=== PATIENT | male | born 1990 | race American Indian/Alaskan Native ===

== ENCOUNTER 2018-11-07 10:10 | Emergency (ER) | payer SELFPAY ==
[2018-11-07] MEDS ORDERED: CLEOCIN 900 MG/50 mL 900 MG/50 ML BAG IV ONE (10:39)
[2018-11-07 11:05] LABS: Basophils % (Auto) 0.4 % (0.0-1.8); Eosinophils % (Auto) 0.5 % (0.0-4.3); Hematocrit 42.3 % (35.5-45.6); Hemoglobin 13.7 gm/dl (11.8-15.2); Lymphocytes # (Auto) 1.2 K/mm3 (1.2-5.4); Mean Corpuscular HGB Conc 32 % (32-34); Mean Corpuscular Volume 84 fl (84-94); Monocytes # (Auto) 0.7 K/mm3 (0.0-0.8); Monocytes % (Auto) 6.8 % (0.0-7.3); Platelet Count 214 K/mm3 (140-440); Red Blood Count 5.02 M/mm3 (3.65-5.03); Red Cell Distribution Width 15.4 % (13.2-15.2)
[2018-11-07 11:11] LABS: BUN/Creatinine Ratio 7; Blood Urea Nitrogen 5 mg/dL (9-20); Calcium 8.9 mg/dL (8.4-10.2); Hemolysis Index 8
--- NOTE | 2018-11-07 11:19 | Emergency Department Report ---
HPI - General Chief Complaint: Sore Throat Time Seen by Provider: 11/07/18 10:27 - HPI HPI: 28-year-old male presents to the emergency department with a complaint of a 2 to three-day history of a sore throat, and now a one-day history of some swelling and redness to the left side of the face includes the jaw and just below the jaw. He has pain with swallowing and says that he has some difficulty opening his mouth completely. He has not taken anything for her symptoms prior to presentation. He says that he has a history of some "scalp cellulitis." No recent travel or sick contacts at home. ED Past Medical Hx - Past Medical History Previous Medical History?: No - Surgical History Past Surgical History?: No - Social History Smoking Status: Current Every Day Smoker Substance Use Type: None - Medications Home Medications: Home Medications Medication Instructions Recorded Confirmed Last Taken Type Clindamycin [Clindamycin CAP] 300 mg PO Q6H #28 capsule 11/07/18 Unknown Rx HYDROcodone/APAP 5-325 [[place] 1 each PO Q6HR PRN #12 tablet 11/07/18 Unknown Rx 5/325] ED Review of Systems ROS: Stated complaint: FACE SWOLLEN Other details as noted in HPI Comment: All other systems reviewed and negative Constitutional: denies: chills, fever Eyes: denies: eye pain, vision change ENT: throat pain. denies: congestion Respiratory: denies: cough, shortness of breath Cardiovascular: denies: chest pain, palpitations Gastrointestinal: denies: abdominal pain, vomiting Skin: rash, change in color Neurological: denies: headache, weakness Hematological/Lymphatic: denies: easy bleeding, easy bruising Physical Exam - Physical Exam Vital Signs: Vital Signs 11/07/18 10:16 Temperature 98.0 F Pulse Rate 63 Respiratory 18 Rate Blood Pressure 121/72 O2 Sat by Pulse 97 Oximetry Physical Exam: GENERAL: The patient is well-developed well-nourished. HENT: Normocephalic. Atraumatic. Patient has moist mucous membranes. There is mild bilateral tonsillar hypertrophy with erythema. No drooling. EYES: Extraocular motions are intact. NECK: Supple. Trachea is midline. CHEST/LUNGS: Clear to auscultation. There is no respiratory distress noted. HEART/CARDIOVASCULAR: Regular. There is no tachycardia. There is no murmur. ABDOMEN: Abdomen is soft, nontender. Patient has normal bowel sounds. There is no abdominal distention. SKIN: There is some facial swelling to the left mandibular and submandibular region with some erythema. No bleeding, weeping or drainage. No fluctuance. NEURO: The patient is awake, alert, and oriented. The patient is cooperative. The patient has no focal neurologic deficits. The patient has normal speech. MUSCULOSKELETAL: There is no tenderness or deformity. There is no evidence of acute injury. ED Course Vital Signs 11/07/18 10:16 Temperature 98.0 F Pulse Rate 63 Respiratory 18 Rate Blood Pressure 121/72 O2 Sat by Pulse 97 Oximetry - Consultations Consultation #1: I spoke with the oral maxillofacial surgery attending conductor/engineer at [facility], Dr. Arredondo, who listened to the case presentation and most specifically sent to the CT findings of the focal defect of the left mandibular lingula. Since there does not appear to be anything to drain currently, he is in agreement with the plan for outpatient follow-up in their clinic and antibiotic treatment. 11/07/18 16:38 ED Medical Decision Making - Lab Data Result diagrams: 11/07/18 10:41 11/07/18 10:41 - Radiology Data Radiology results: report reviewed CT facial bones without contrast CLINICAL HISTORY: Left-sided facial pain and swelling FINDINGS: There is lucency surrounding the roots of multiple mandibular teeth at. However, the findings most notably involving the posterior left molar on the left with associated defect invo lving the lingual cortex at. Furthermore, there are edematous changes within the adjacent lingual soft tissues with a area of relative decreased attenuation measuring 1.37 m in greatest AP dimension. This finding would be compatible with developing abscess. There are notable surrounding inflammatory changes extending into the left submandibular space with adjacent reactive at adenopathy. Furthermore, there is thickening of the left platysma muscle with inflammatory changes of the superficial buccal soft tissues edema also results in mild mass effect upon the left parapharyngeal soft tissues at. There is notable adenoidal and palatine soft tissues most consistent with lymphoid hypertrophy. The paranasal sinuses are pneumatized without air-fluid levels. The nasal septum is midline. No significant inflammatory changes are seen involving the orbits. All CT scans at this location are performed using the CT dose reduction for [place] by means of automated exposure control. IMPRESSION: There is lucency surrounding the root of the posterior left mandibular molar with focal defect involving the lingual cortex. Additionally, the findings are compatible with developing periodontal abscess involving the adjacent lingual soft tissues measure approximately 1.3 cm in greatest dimension. There are associated surrounding inflammatory changes with edema and reactive adenopathy. - Medical Decision Making This patient presents with a few days of a sore throat and some left-sided facial swelling. There is some swelling over the left mandibular region and sub mandibular region with some erythema concerning for cellulitis. There is no fluctuance. There is no drooling. The patient has some tonsillar hypertrophy and erythema. He was positive for rapid strep test. Patient's labs were unremarkable including CBC and metabolic panel. The patient had a CT scan of the face with IV contrast that came back showing lucencies to multiple left mandibular teeth but most notably to the posterior molar. There is a focal defect to the lingula of the left mandible. Overall this shows some signs of developing periodontal abscesses. And there is also some reactive lymphadenopathy. The patient received a dose of IV clindamycin here. As per the consultation section, I spoke with the oral maxillofacial on-call physician at [facility] who agrees that the patient can follow up outpatient at their clinic. Patient has no leukocytosis, his vital signs are stable including being afebrile, he is able to swallow liquids, take medications and there is no dr ooling. Follow up these reasons, we will attempt to treat the patient in the outpatient setting. He has been given a prescription for antibiotics and pain medication. He has been given a referral for the OMFS clinic at [facility] and told to call upon discharge for the earliest appointment. We also had a long discussion about the reasons for return to the closest emergency department such as increased facial swelling, inability to swallow liquids, difficulty with his secretions, or with any worsening of his symptoms or any acute distress. We discussed all the labs and imaging. The patient understands and agrees to the plan. - Differential Diagnosis facial cellulitis, strep pharyngitis, peritonsillar abscess, sepsis Critical Care Time: No Critical care attestation.: If time is entered above; I have spent that time in minutes in the direct care of this critically ill patient, excluding procedure time. ED Disposition Clinical Impression: Strep pharyngitis, Facial cellulitis, Dental abscess Disposition: TO HOME OR SELFCARE Is pt being admited?: No Condition: Stable Instructions: Dental Abscess (ED), Cellulitis (ED), Strep Throat (ED) Additional Instructions: Take the antibiotics as Prescribed. Please follow up with the oromaxillofacial clinic at [facility] regarding the abnormal finidings from your CT of the facial bones and the infection of your mandible (jaw). You will also need to see a dentist regarding her dental abscesses. Return to the emergency Department with any worsening of your symptoms including inability to swallow liquids, swallow your own secretions, increased pain, increased swelling, or with any acute distress. Prescriptions: Clindamycin [Clindamycin CAP] 300 mg PO Q6H #28 capsule HYDROcodone/APAP 5-325 [[place] 5/325] 1 each PO Q6HR PRN #12 tablet PRN Reason: Pain Referrals: [facility] [Outside] - [facility] [Outside] - 2-3 Days Time of Disposition: 16:46
--- NOTE | 2018-11-07 13:35 | Cat Scan Report ---
CT facial bones without contrast CLINICAL HISTORY: Left-sided facial pain and swelling FINDINGS: There is lucency surrounding the roots of multiple mandibular teeth at. However, the findin gs most notably involving the posterior left molar on the left with associated defect involving the l ingual cortex at. Furthermore, there are edematous changes within the adjacent lingual soft tissues w ith a area of relative decreased attenuation measuring 1.37 m in greatest AP dimension. This finding would be compatible with developing abscess. There are notable surrounding inflammatory changes exten ding into the left submandibular space with adjacent reactive at adenopathy. Furthermore, there is th ickening of the left platysma muscle with inflammatory changes of the superficial buccal soft tissues edema also results in mild mass effect upon the left parapharyngeal soft tissues at. There is notabl e adenoidal and palatine soft tissues most consistent with lymphoid hypertrophy. The paranasal sinuses are pneumatized without air-fluid levels. The nasal septum is midline. No signi ficant inflammatory changes are seen involving the orbits. All CT scans at this location are performe d using the CT dose reduction for ALARA by means of automated exposure control. IMPRESSION: There is lucency surrounding the root of the posterior left mandibular molar with focal defect involv ing the lingual cortex. Additionally, the findings are compatible with developing periodontal abscess involving the adjacent lingual soft tissues measure approximately 1.3 cm in greatest dimension. Ther e are associated surrounding inflammatory changes with edema and reactive adenopathy. Signer Name: Benito Wood MD Signed: 11/07/2018 1:30 PM Workstation Name: [id number]
[2018-11-07 14:51] VITALS: BP 125/85
== END 2018-11-07 14:50 | disposition home or self-care (01) ==
LOC: ED 10:10
DX: J02.0 Streptococcal pharyngitis (principal); K04.7 Periapical abscess without sinus; L03.211 Cellulitis of face; F17.200 Nicotine dependence, unspecified, uncomplicated
CPT/HCPCS: 36415; 70487; 80048; 85025; 87430; 96365; 99284; Q9967

== ENCOUNTER 2018-11-10 13:23 | Emergency (ER) | payer SELFPAY ==
--- NOTE | 2018-11-10 13:58 | Emergency Department Report ---
Blank Doc - Documentation Documentation: This is a 28-year-old male that presents with left sided facial swelling and s ore throat and dental pain. Has been taking antibiotics which was not helping and getting worse. CT shows positive strep and dental ascbess. This initial assessment/diagnostic orders/clinical plan/treatment(s) is/are subject to change based on patient's health status, clinical progression and re- assessment by fellow clinical providers in the ED. Further treatment and workup at subsequent clinical providers discretion. Patient/guardians urged not to elope from the ED as their condition may be serious if not clinically assessed and managed. Initial orders include: 1- Patient sent to MAIN ED for further evaluation and treatment 2- labs
[2018-11-10 14:48] LABS: Basophils % (Auto) 0.3 % (0.0-1.8); Eosinophils # (Auto) 0.1 K/mm3 (0.0-0.4); Eosinophils % (Auto) 0.5 % (0.0-4.3); Hematocrit 42.9 % (35.5-45.6); Hemoglobin 13.8 gm/dl (11.8-15.2); Lymphocytes # (Auto) 1.4 K/mm3 (1.2-5.4); Lymphocytes % (Auto) 10.1 % (13.4-35.0); Mean Corpuscular HGB Conc 32 % (32-34); Mean Corpuscular Volume 83 fl (84-94); Monocytes # (Auto) 1.2 K/mm3 (0.0-0.8); Monocytes % (Auto) 9.1 % (0.0-7.3); Platelet Count 273 K/mm3 (140-440); Red Blood Count 5.16 M/mm3 (3.65-5.03); Red Cell Distribution Width 15.2 % (13.2-15.2)
[2018-11-10 15:08] LABS: BUN/Creatinine Ratio 6; Blood Urea Nitrogen 4 mg/dL (9-20); Calcium 9.6 mg/dL (8.4-10.2); Hemolysis Index 0
[2018-11-10] MEDS ORDERED: ZOSYN/NS 4.5GM/100ML 4.5 GM/100 ML VIAL IV ONE (17:41)
[2018-11-10] MEDS ORDERED: CLEOCIN 900 MG/50 mL 900 MG/50 ML BAG IV ONE (17:41)
--- NOTE | 2018-11-10 17:43 | Emergency Department Report ---
ED ENT HPI - General Chief complaint: Sore Throat Stated complaint: SWOLLEN FACE Time Seen by Provider: 11/10/18 13:57 Source: patient Mode of arrival: Ambulatory Limitations: No Limitations - History of Present Illness MD complaint: sore throat, difficulty swallowing -: Gradual Location: other (Pharynx) Severity: severe Severity scale (0 -10): 9 Quality: dull Consistency: constant Improves with: none Worsens with: swallowing, eating Context- Dental: poor dental care Associated Symptoms: pain with swallowing, sore throat, other (Trismus) - Related Data Previous Rx's Medication Instructions Recorded Last Taken Type Clindamycin [Clindamycin CAP] 300 mg PO Q6H #28 capsule 11/07/18 Unknown Rx HYDROcodone/APAP 5-325 [[place] 1 each PO Q6HR PRN #12 tablet 11/07/18 Unknown Rx 5/325] Allergies Allergy/AdvReac Type Severity Reaction Status Date / Time No Known Allergies Allergy Unverified 11/07/18 10:12 ED Dental HPI - General Chief complaint: Sore Throat Stated complaint: SWOLLEN FACE Time Seen by Provider: 11/10/18 13:57 Source: patient Mode of arrival: Ambulatory Limitations: No Limitations - Related Data Previous Rx's Medication Instructions Recorded Last Taken Type Clindamycin [Clindamycin CAP] 300 mg PO Q6H #28 capsule 11/07/18 Unknown Rx HYDROcodone/APAP 5-325 [[place] 1 each PO Q6HR PRN #12 tablet 11/07/18 Unknown Rx 5/325] Allergies Allergy/AdvReac Type Severity Reaction Status Date / Time No Known Allergies Allergy Unverified 11/07/18 10:12 ED Review of Systems ROS: Stated complaint: SWOLLEN FACE Other details as noted in HPI Comment: All other systems reviewed and negative Constitutional: denies: chills, fever Eyes: denies: eye pain, eye discharge, vision change ENT: throat pain, dental pain, other (Unable to swallow.). denies: ear pain Respiratory: denies: cough, shortness of breath, wheezing Cardiovascular: denies: chest pain, palpitations Endocrine: no symptoms reported Gastrointestinal: denies: abdominal pain, nausea, diarrhea Genitourinary: denies: urgency, dysuria Musculoskeletal: denies: back pain, joint swelling, arthralgia Skin: denies: rash, lesions Neurological: denies: headache, weakness, paresthesias Psychiatric: denies: anxiety, depression Hematological/Lymphatic: denies: easy bleeding, easy bruising ED Past Medical Hx - Past Medical History Previous Medical History?: No - Surgical History Past Surgical History?: No - Social History Smoking Status: Never Smoker Substance Use Type: None - Medications Home Medications: Home Medications Medication Instructions Recorded Confirmed Last Taken Type Clindamycin [Clindamycin CAP] 300 mg PO Q6H #28 capsule 11/07/18 11/10/18 Unknown Rx HYDROcodone/APAP 5-325 [[place] 1 each PO Q6HR PRN #12 tablet 11/07/18 11/10/18 Unknown Rx 5/325] ED Physical Exam - General Limitations: No Limitations General appearance: alert, in no apparent distress - Head Head exam: Present: atraumatic, normocephalic - Eye Eye exam: Present: normal appearance, PERRL, EOMI Pupils: Present: normal accommodation - ENT ENT exam: Present: mucous membranes moist, other (Uvula and pharyngeal erythema and edema.) - Neck Neck exam: Present: normal inspection, full ROM. Absent: tenderness, meningismus - Respiratory Respiratory exam: Present: normal lung sounds bilaterally. Absent: respiratory distress - Cardiovascular Cardiovascular Exam: Present: regular rate, normal rhythm. Absent: systolic murmur, diastolic murmur, rubs, gallop - GI/Abdominal GI/Abdominal exam: Present: soft, normal bowel sounds. Absent: distended, tenderness, guarding - Rectal Rectal exam: Present: deferred - Extremities Exam Extremities exam: Present: normal inspection - Back Exam Back exam: Present: normal inspection - Neurological Exam Neurological exam: Present: alert, oriented X3, CN II-XII intact - Psychiatric Psychiatric exam: Present: normal affect, normal mood - Skin Skin exam: Present: warm, dry, intact, normal color. Absent: rash ED Course Vital Signs 11/10/18 11/10/18 11/10/18 13:57 17:42 19:22 Temperature 98.7 F 99.0 F Pulse Rate 57 L 55 L Respiratory 18 17 20 Rate Blood Pressure 124/59 Blood Pressure 106/68 [Left] O2 Sat by Pulse 100 100 Oximetry - Consultations Consultation #1: 11/10/18 18:15 I consulted the Oral Surgeon tar distillation supervisor at [facility] Dr Arredondo. He requested a CT scan of the oral cavity before he can accept patient for transfer to [facility] level of care. Consultation #2: 11/10/18 20:57 Patient was accepted for transfer to [facility] by ENT Surgeon Dr Baez for higher level of care. ED Medical Decision Making - Lab Data Result diagrams: 11/10/18 14:34 11/10/18 14:34 Lab Results 11/10/18 11/10/18 11/10/18 Range/Units 14:34 14:34 14:34 WBC 13.5 H (4.5-11.0) K/mm3 RBC 5.16 H (3.65-5.03) M/mm3 Hgb 13.8 (11.8-15.2) gm/dl Hct 42.9 (35.5-45.6) % MCV 83 L (84-94) fl MCH 27 L (28-32) pg MCHC 32 (32-34) % RDW 15.2 (13.2-15.2) % Plt Count 273 (140-440) K/mm3 Lymph % (Auto) 10.1 L (13.4-35.0) % [place] % (Auto) 9.1 H (0.0-7.3) % Eos % (Auto) 0.5 (0.0-4.3) % Baso % (Auto) 0.3 (0.0-1.8) % Lymph # 1.4 (1.2-5.4) K/mm3 [place] # 1.2 H (0.0-0.8) K/mm3 Eos # 0.1 (0.0-0.4) K/mm3 Baso # 0.0 (0.0-0.1) K/mm3 Seg Neutrophils % 80.0 H (40.0-70.0) % Seg Neutrophils # 10.8 H (1.8-7.7) K/mm3 PT (12.2-14.9) Sec. INR (0.87-1.13) APTT (24.2-36.6) Sec. Sodium 140 (137-145) mmol/L Potassium 3.1 L (3.6-5.0) mmol/L Chloride 98.1 (98-107) mmol/L Carbon Dioxide 27 (22-30) mmol/L Anion Gap 18 mmol/L BUN 4 L (9-20) mg/dL Creatinine 0.7 L (0.8-1.5) mg/dL Estimated GFR > 60 ml/min BUN/Creatinine Ratio 6 % Glucose 99 (75-100) mg/dL Lactic Acid 1.00 (0.7-2.0) mmol/L Calcium 9.6 (8.4-10.2) mg/dL Total Bilirubin (0.1-1.2) mg/dL Direct Bilirubin (0-0.2) mg/dL Indirect Bilirubin mg/dL AST (5-40) units/L ALT (7-56) units/L Alkaline Phosphatase (35-129) units/L Total Protein (6.3-8.2) g/dL Albumin (3.9-5) g/dL Albumin/Globulin Ratio % 11/10/18 11/10/18 Range/Units 17:55 17:55 WBC (4.5-11.0) K/mm3 RBC (3.65-5.03) M/mm3 Hgb (11.8-15.2) gm/dl Hct (35.5-45.6) % MCV (84-94) fl MCH (28-32) pg MCHC (32-34) % RDW (13.2-15.2) % Plt Count (140-440) K/mm3 Lymph % (Auto) (13.4-35.0) % [place] % (Auto) (0.0-7.3) % Eos % (Auto) (0.0-4.3) % Baso % (Auto) (0.0-1.8) % Lymph # (1.2-5.4) K/mm3 [place] # (0.0-0.8) K/mm3 Eos # (0.0-0.4) K/mm3 Baso # (0.0-0.1) K/mm3 Seg Neutrophils % (40.0-70.0) % Seg Neutrophils # (1.8-7.7) K/mm3 PT 17.0 H (12.2-14.9) Sec. INR 1.42 H (0.87-1.13) APTT 33.5 (24.2-36.6) Sec. Sodium (137-145) mmol/L Potassium (3.6-5.0) mmol/L Chloride (98-107) mmol/L Carbon Dioxide (22-30) mmol/L Anion Gap mmol/L BUN (9-20) mg/dL Creatinine (0.8-1.5) mg/dL Estimated GFR ml/min BUN/Creatinine Ratio % Glucose (75-100) mg/dL Lactic Acid (0.7-2.0) mmol/L Calcium (8.4-10.2) mg/dL Total Bilirubin 1.30 H (0.1-1.2) mg/dL Direct Bilirubin 0.3 H (0-0.2) mg/dL Indirect Bilirubin 1.0 mg/dL AST 8 (5-40) units/L ALT 8 (7-56) units/L Alkaline Phosphatase 74 (35-129) units/L Total Protein 9.4 H (6.3-8.2) g/dL Albumin 3.9 (3.9-5) g/dL Albumin/Globulin Ratio 0.7 % - Radiology Data Radiology results: report reviewed CT Neck showed left peritonsilar abscess. Critical Care Time: Yes Critical care time in (mins) excluding proc time.: 50 Critical care attestation.: If time is entered above; I have spent that time in minutes in the direct care of this critically ill patient, excluding procedure time. ED Disposition Clinical Impression: Peritonsillar abscess, Strep pharyngitis Dysphagia Qualifiers: Dysphagia type: pharyngeal phase Qualified Code(s): R13.13 - Dysphagia, pharyngeal phase Leukocytosis (leucocytosis) Qualifiers: Leukocytosis type: unspecified Qualified Code(s): D72.829 - Elevated white blood cell count, unspecified Disposition: DC/TX- [facility] Is pt being admited?: No Does the pt Need Aspirin: No Condition: Stable Referrals: BLANCA GILLIS MD [Primary Care Provider] - 3-5 Days
[2018-11-10] MEDS ORDERED: DECADRON 20 MG in NACL 0.9% 50 ML IV ONE (18:00)
[2018-11-10 18:35] LABS: INR 1.42 (0.87-1.13)
[2018-11-10 18:36] LABS: Partial Thromboplastin Time 33.5 Sec. (24.2-36.6)
[2018-11-10 18:44] LABS: Albumin 3.9 g/dL (3.9-5); Bilirubin,Direct 0.3 mg/dL (0-0.2)
[2018-11-10] MEDS ORDERED: NACL 0.9% 1000 ML 1,000 ML IV ONE ×2 (19:00)
--- NOTE | 2018-11-10 19:09 | Cat Scan Report ---
NECK CT 11/10/2018 HISTORY: Left neck swelling FINDINGS: Contrast enhanced CT images of the soft tissues of the neck were obtained. Images are evalu ated in the axial, coronal, and sagittal plane. There is a prominent fluid collection present in the left peritonsillar region, extending along the l eft lateral pharynx, down into the left submandibular region. Surrounding inflammatory changes are pr esent, appearance most consistent with an abscess appears to be arising the left peritonsillar region . This collection measures approximately 2.9 x 2.5 x 3.5 cm. There is downward displacement and proba ble inflammatory enlargement of the some and tubular gland. Prominent submandibular and left-sided jugular digastric an additional lymph nodes are present, consi stent with reactive adenopathy. The large size of this abscess and associated inflammation results in narrowing of the posterior aspe ct of the oropharynx. There are several areas of lucency associated with left mandibular molars, including lucency which i s present along the medial aspect of the mandible adjacent to this abscess. Because of its large size , it is somewhat difficult to determine whether it arose from the peritonsillar region itself or may be the result of dental origin infection. IMPRESSION: Prominent left peritonsillar versus dental origin abscess. See above discussion for reggieai ls. Reactive adenopathy. All CT scans at this location are performed using dose reduction to ALARA by means of automated expos ure control. Signer Name: Dre Morales MD Signed: 11/10/2018 7:05 PM Workstation Name: [id number]
--- NOTE | 2018-11-10 19:12 | Cat Scan Report ---
FACIAL CT 11/10/2018 HISTORY: Left-sided swelling FINDINGS: Unenhanced CT images of the facial structures were obtained. There is a significant left sided peritonsillar/oral abscess, described in detail on the separate [facility] k CT report. As described in the report, a large size Difficult to determine a peritonsillar versus dental origin. However, those images and the additional resolution provided here indicate an area of periodontal lucency with a focal dehiscence along the m edial wall of the mandible, immediately adjacent to the lateral aspect of this abscess. There also ap pears to be some periosteal reaction, which may be associated with the presence of this abscess, and indicate a primarily central origin. IMPRESSION: Left peritonsillar region abscess as detailed above. Please see the neck CT report for im portant additional details. All CT scans at this location are performed using dose reduction to ALARA by means of automated expos ure control. Signer Name: Dre Morales MD Signed: 11/10/2018 7:07 PM Workstation Name: [id number]
[2018-11-10] MEDS ORDERED: ZOFRAN IV ONE (19:54)
[2018-11-10] MEDS ORDERED: ZOFRAN ONE (19:57)
[2018-11-10 21:38] VITALS: BP 132/82
== END 2018-11-10 22:38 | disposition short-term general hospital (02) ==
LOC: ED 13:23
DX: J36 Peritonsillar abscess (principal); D72.829 Elevated white blood cell count, unspecified
CPT/HCPCS: 36415; 70487; 70491; 80048; 80076; 82140; 85025; 85610; 85730; 87040; 96365; 96366; 96367; 96368; 96375; 99291; J1100; J2405; J2543; J7030; Q9967